=== PATIENT | female | born 1970 | race American Indian/Alaskan Native ===

== ENCOUNTER 2021-02-28 07:44 | Day surgery (SDC) | payer OTHER ==
[~2021-02-28 07:44] MED LIST: SODIUM CHLORIDE 0.9% 1000 ML 1,000 ML IV SCH
--- NOTE | 2021-02-28 08:28 | Anesthesia Consultation ---
Anesthesia Consult and Med Hx Date of service: 02/28/21 - Airway Anesthetic Teeth Evaluation: Good ROM Head & Neck: Adequate Mental/Hyoid Distance: Adequate Mallampati Class: Class I Intubation Access Assessment: Good - Pulmonary Exam CTA: Yes - Cardiac Exam Cardiac Exam: RRR - Pre-Operative Health Status ASA Pre-Surgery Classification: ASA2 Proposed Anesthetic Plan: MAC - Pulmonary Hx Smoking: No Hx Asthma: Yes Hx Sleep Apnea: No - Cardiovascular System Hx Hypertension: No Hx Coronary Artery Disease: No - Central Nervous System Hx Neuromuscular Disorder: No Hx Psychiatric Problems: No - Gastrointestinal Hx Gastroesophageal Reflux Disease: No - Endocrine Hx Renal Disease: No Hx Liver Disease: No Hx Thyroid Disease: No - Hematic Hx Anemia: No - Other Systems Hx Alcohol Use: No Hx Substance Use: No Hx Cancer: No Hx Obesity: Yes (BMI 39) - Additional Comments Anesthesia Medical History Comments: No hx of anesthetic complications
--- NOTE | 2021-02-28 08:29 | Anesthesia Day of Surgery ---
Anesthesia Day of Surgery - Day of Surgery Patient Examined: Yes Patient H&P Reviewed: Yes Patient is NPO: Yes
[2021-02-28] MEDS ORDERED: LIDOCAINE MPF (2%) 20 MG/1 ML VIAL 5 ML ONE (09:40)
[2021-02-28] MEDS ORDERED: propofoL 200 MG/20 ML VIAL IV ONE ×2 (09:41→09:55)
[2021-02-28] MEDS ORDERED: SODIUM CHLORIDE 0.9% 1000 ML 1,000 ML ONE (09:44)
--- NOTE | 2021-02-28 10:11 | Procedure Note ---
Date of procedure: 02/28/21 Pre-op diagnosis: GERD/ Clearance for Gastric Bypass Post-op diagnosis: other (Moderate. Erosive Esophagitis/ Gastritis/R/O Celiac Disease/ No Peptic Ulcer Disease noted/ Patent Plorus/ Cleared for Gastric Bypass Surgery) Procedure: EGD with Biopsy Anesthesia: [facility] [place] Surgeon: YU XIE Estimated blood loss: minimal Pathology: list Specimen disposition: to lab Condition: stable Disposition: same day (Treat with PPI; avoid aspirin and NSAID for 5 days, otherwise resume home medication and F/U in 1 to 2 weeks ([phone]).)
--- NOTE | 2021-02-28 10:16 | Operative Report ---
DATE OF SURGERY: 02/28/2021 PROCEDURE PERFORMED: EGD with biopsy. INDICATIONS: A 51-year-old obese -[place] female is to have gastric bypass done. EGD was done and also because of her complaints of GERD symptoms and to make sure that she could proceed with her gastric bypass surgery. DESCRIPTION OF PROCEDURE: Procedure was done after getting informed consent. The procedure was done with MAC anesthesia. The instrument was passed through the hypopharynx into the esophagus, which showed moderate erosive esophagitis. Photodocumentation and biopsy was done to assess for the severity of the erosive esophagitis. Stomach showed gastritis. No gastric ulcers were noted in the straight or retroverted view. The pylorus was patent. The duodenum in the first and second portion appeared normal. Biopsy was done from the second part to rule out for possible celiac disease. Additional biopsy was done from the gastric antrum, gastric body and angular incisura to rule out for H. pylori and atrophic gastritis. There was minimal bleeding associated with the procedure. No complications associated with the procedure. ASSESSMENT: Gastroesophageal reflux disease symptoms, moderate erosive esophagitis, gastritis, rule out celiac disease. No peptic ulcer disease noted. EGD was also done as endoscopy as the procedure prior to gastric bypass to assess for any gastric abnormality. None was noted. PLAN: Treat the patient with PPI, have the patient avoid aspirin and aspirin-related products for the next 4 days, otherwise resume home medication and have the patient follow up in the office in 1-2 weeks' time. Procedure was done in the GI lab with assistance of the GI lab team, which included the GI nurse, the pharmacy technician assistant and with assistance of anesthesia. TID: [id number] RECEIPT: [id number] RENEE/CATHERINE
[2021-02-28 15:10] VITALS: BP 119/78
--- NOTE | 2021-02-28 16:52 | Post Anesthesia Evaluation ---
- Post Anesthesia Evaluation Patient Participated: Yes Airway Patent: Yes Stable Respiratory Function: Yes Nausea/Vomiting: No Temp > 96.8F: Yes Pain Manageable: Yes Adequeate Hydration: Yes Anesthesia Complications: No Block Receding Appropriately: Not Applicable Patient on Ventilator: No
== END 2021-02-28 07:45 | disposition home or self-care (01) ==
LOC: GIO 07:44
DX: K21.00 Gastro-esophageal reflux disease with esophagitis, without bleeding (principal); E66.9 Obesity, unspecified; K31.89 Other diseases of stomach and duodenum; K29.50 Unspecified chronic gastritis without bleeding; J45.909 Unspecified asthma, uncomplicated; Z79.899 Other long term (current) drug therapy; Z98.890 Other specified postprocedural states; Z68.39 Body mass index [BMI] 39.0-39.9, adult
CPT/HCPCS: 43239; 88305; 88342; J2704; J3490; J7030; J7120; Q0162